=== PATIENT | female | born 1955 | race Caucasian/White ===

== ENCOUNTER → 2021-09-27 | Outpatient (CLI) | payer MEDICARE, OTHER ==
[~2021-09-27] MED LIST: ASCO500 PO; ATOR10 PO; Aspirin EC81 MG PO; Cortef5 MG PO; Daily Multiple1 EACH PO; Hydrocortisone5 MG PO; LEVSOD88 PO; Oyster Shell C500 MG PO; RISE35 PO; VAGIFEM10 MCG VG; VITAMIN D34000 UNIT PO
== END | disposition home or self-care (01) ==
LOC: LAB SHORT 12:26 → LAB 12:26
DX: L57.0 Actinic keratosis (principal)
CPT/HCPCS: 88305